=== PATIENT | female | born 1930 | race Caucasian/White ===

== ENCOUNTER 2017-03-03 09:57 | Emergency (ER) | payer MEDICARE, BC ==
--- NOTE | ~2017-03-03 | CR230 ---
[facility] [[email or web address]]. [facility] A Service of [facility] & [facility] RADIOLOGY TEXT RESULTS PATIENT: ANJALI GARCIA LOCATION: SED : [birth year] UNIT #: [id number] AGE: [address]: Brii Lacy APRN SEX: F ORDER DR: [id number] [address] [address] [id number] E MR#: [id number] Acc #: [id number] NAME: ANJALI GARCIA : 1930 SEX: F STUDY DATE/TIME: 03/03/2017 11:09 UNIT: SED ROOM: STUDY DESCRIPTION: CR Shoulder Min 2 View Rt Attending Physician: Brii Lacy A.P.R.N. Ordering Physician: Brii Lacy A.P.R.N. Primary Care Physician: Flako Thomas M.D. MEDICAL IMAGING REPORT This report is preliminary unless electronic signature is present. EXAM Right shoulder, 3 views; 03/03/2017, 1109 hours. CLINICAL HISTORY 86-year-old woman who slipped and fell on a tile floor at home last night. Patient complains of shoulder pain since fall. FINDINGS AP views in internal-external rotation and scapular Y-view demonstrate normal bone density and range of motion. The humerus is intact. The glenohumeral joint is normal. The acromioclavicular joint is normal. Upper ribs are intact. IMPRESSION Negative right shoulder. Dictated by... Mami Winter M.D. THIS IS AN ELECTRONICALLY VERIFIED REPORT Mami Winter M.D. at 03/04/2017 5:21 PM Alejo TD: 03/03/2017 14:32 JOB #: [id number] MEDICAL IMAGING REPORT Page 1 of 1
--- NOTE | ~2017-03-03 | CR169 ---
[facility]. [facility] A Service of [facility] & [facility] RADIOLOGY TEXT RESULTS PATIENT: ANJALI GARCIA LOCATION: SED : [birth year] UNIT #: [id number] AGE: [address]: Brii Lacy APRN SEX: F ORDER DR: [id number] [address] [address] [id number] E MR#: [id number] Acc #: [id number] NAME: ANJALI GARCIA : 1930 SEX: F STUDY DATE/TIME: 03/03/2017 11:06 UNIT: SED ROOM: STUDY DESCRIPTION: CR Knee 2 Views Lt Attending Physician: Brii Lacy A.P.R.N. Ordering Physician: Brii Lacy A.P.R.N. Primary Care Physician: Flako Thomas M.D. MEDICAL IMAGING REPORT This report is preliminary unless electronic signature is present. EXAM Left knee 2 views, 03/03/2017 1106 hours HISTORY 86-year-old woman who fell on a tile floor last night. Patient complains of knee and shoulder pain since fall. COMPARISON None. FINDINGS AP and cross-table lateral views of the knee demonstrate no joint effusion or fracture. There is edema in the subcutaneous tissues anterior to the patella and the infrapatellar tendon. IMPRESSION No joint effusion, fracture or significant degenerative change. There is subcutaneous edema superficial to the patella and the infrapatellar tendon. Dictated by... Mami Winetr M.D. THIS IS AN ELECTRONICALLY VERIFIED REPORT Mami Winter M.D. at 03/03/2017 2:33 PM NASRAM/ellie TD: 03/03/2017 14:10 JOB #: [id number] MEDICAL IMAGING REPORT Page 1 of 1
[~2017-03-03 09:57] MED LIST: ACETAMINOPHEN PO; ADVIL OTC; CALCIUM 500 + D1 TAB PO; CERTAGEN PO; COUMADIN PO; NORCO 5/325 TAB1 TAB PO; PSYLLIUM; [UNRECOGNIZED DRUG - OTHER]; [UNRECOGNIZED DRUG - OTHER]
[2017-03-03] MEDS ORDERED: PRESERVISION1 EA PO (10:09)
[2017-03-03] MEDS ORDERED: HYDROCHLOROTHIA25 MG PO (10:09)
[2017-03-03] MEDS ORDERED: IBUPROFEN (10:10)
[2017-03-03] MEDS ORDERED: VITAMIN D-32000 UNI1 PO (10:10)
== END 2017-03-03 12:18 | disposition home or self-care (01) ==
LOC: SED 09:57
DX: S80.02XA Contusion of left knee, initial encounter (principal); S40.011A Contusion of right shoulder, initial encounter; I10 Essential (primary) hypertension; Z79.899 Other long term (current) drug therapy; W18.30XA Fall on same level, unspecified, initial encounter
CPT/HCPCS: 29530; 73030; 73560; 99283

== ENCOUNTER 2017-03-14 16:55 | Emergency (ER) | payer MEDICARE, BC ==
[~2017-03-14] VITALS: Ht 160 cm; Wt 72.6 kg
--- NOTE | ~2017-03-14 | CR72 ---
[facility]. [facility] A Service of [facility] & [facility] RADIOLOGY TEXT RESULTS PATIENT: ANJALI GARCIA LOCATION: SED : [birth year] UNIT #: [id number] AGE: [address]: Norma Carlton MD SEX: F ORDER DR: [id number] [address] [address] [id number] E MR#: [id number] Acc #: [id number] NAME: ANJALI GARCIA : 1930 SEX: F STUDY DATE/TIME: 03/14/2017 17:32 UNIT: SED ROOM: STUDY DESCRIPTION: CR Chest Single View Portable Attending Physician: Norma Carlton M.D. Ordering Physician: Norma Carlton M.D. Primary Care Physician: Flako Thomas M.D. MEDICAL IMAGING REPORT This report is preliminary unless electronic signature is present. EXAM Portable chest, 03/14/2017 HISTORY Heart palpitations for several weeks. Patient states feels like heart is racing. Benign essential hypertension. FINDINGS There is mild cardiac enlargement. The lungs are clear. There are no pleural effusions. IMPRESSION Mild cardiac enlargement. No active pulmonary disease. Dictated by... Naga Marx M.D. THIS IS AN ELECTRONICALLY VERIFIED REPORT Naga Marx M.D. at 03/15/2017 10:33 AM PROSPER/micki TD: 03/15/2017 05:07 JOB #: [id number] MEDICAL IMAGING REPORT Page 1 of 1
--- NOTE | ~2017-03-14 | EKG ---
PATIENT: RADHA, ANJALI UNIT #: [id number] Ventricular Rate: 141 BPM Atrial Rate: 111 BPM QRS Duration: 70 ms Q-T Interval: 310 ms QTC Calculation(Bezet): 474 ms Calculated R Antonito: -11 degrees Calculated T Antonito: -177 degrees Diagnosis Line: Supraventricular tachycardia Diagnosis Line: Left ventricular hypertrophy with repolarization Diagnosis Line: abnormality Diagnosis Line: Anterior infarct , age undetermined Diagnosis Line: Abnormal ECG Diagnosis Line: No previous ECGs available Diagnosis Line: Confirmed by JEN ORTIZ MD ([id number]) on Diagnosis Line: 03/16/2017 9:47:23 AM INTERPRETING MD: DIANA PRYOR
[~2017-03-14 16:55] MED LIST changes: +HYDROCHLOROTHIA25 MG PO; +IBUPROFEN; +PRESERVISION1 EA PO; +VITAMIN D-32000 UNI1 PO
[2017-03-14 17:37] LABS: BASOPHIL% 0.2 % (0-2.5); EOSINOPHIL# 0.1 X10e3 (0-0.7); EOSINOPHIL% 1.6 % (0.0-7.0); HEMATOCRIT 42.7 % (35.0-45.0); HEMOGLOBIN 14.6 gm/dL (12.0-16.0); LYMPHOCYTE# 1.8 X10e3 (1.0-3.5); LYMPHOCYTE% 27.3 % (17.0-45.0); MEAN CORPUSCULAR HEMOGLOBIN 30.5 PG (28-34); MEAN CORPUSCULAR HGB CONC 34.3 g/dL (30-36); MEAN PLATELET VOLUME 8.9 FL (6.5-11.5); MONOCYTE# 0.6 X10e3 (0-1.0); MONOCYTE% 8.3 % (3.0-12.0); NEUTROPHIL# 4.2 X10e3 (1.5-7.1); NEUTROPHIL% 62.6 % (40-75); PLATELET COUNT 251 X10e3 (140-420); RED CELL DISTRIBUTION WIDTH 12.6 % (11.0-15.5); WHITE BLOOD COUNT 6.7 X10e3 (4.0-10.5)
[2017-03-14 17:38] LABS: POC - MYOGLOBIN 63.1 ng/mL (0.0-169.0); POC - TROPONIN <0.05 ng/mL (<=0.05)
[2017-03-14 17:44] LABS: DIFF IND NO
[2017-03-14 17:48] LABS: INR 0.9; PROTHROMBIN TIME (PATIENT) 10.7 SECONDS (9.5-12.4)
[2017-03-14 17:55] LABS: PARTIAL THROMBOPLASTIN TIME 27.7 SECONDS (25.6-38.1)
[2017-03-14 18:17] LABS: ALBUMIN SERUM 4.2 g/dL (3.5-5.0); BILIRUBIN, DIRECT 0.1 mg/dL (0.0-0.2); BILIRUBIN,INDIRECT 0.5 mg/dL (0.0-0.9); BILIRUBIN,TOTAL 0.6 mg/dL (0.2-2.0); BUN/CREATININE RATIO 25.71; CALCIUM SERUM 9.1 mg/dL (8.4-10.2); CREATININE SERUM 0.7 mg/dL (0.6-1.4); GLOM FILT RATE Estimated 77.9 mL/min (>60); MAGNESIUM 2.1 mg/dL (1.6-3.0); POTASSIUM 3.2 mmol/L (3.5-5.1); PROTEIN TOTAL SERUM 6.5 g/dL (6.0-8.3)
[2017-03-14 19:00] LABS: URINE SOURCE CLEAN CATCH
[2017-03-14 19:02] LABS: URINE APPEARANCE CLEAR; URINE BILIRUBIN NEG (NEG); URINE BLOOD NEG (NEG); URINE COLOR YELLOW; URINE GLUCOSE NEG (NORM); URINE KETONE NEG (NEG); URINE LEUKOCYTE ESTERASE NEG (NEG); URINE NITRATE NEG (NEG); URINE PH 6.5 (5-8); URINE PROTEIN NEG (NEG); URINE SPECIFIC GRAVITY <=1.005 (1.003-1.035); URINE UROBILINOGEN 0.2 MG/DL (NORM)
[2017-03-14 19:04] LABS: MICRO INDICATED? NO
[2017-03-14 19:22] LABS: POC - CKMB <1.0 ng/mL (0.0-7.9)
[2017-03-14 19:23] LABS: POC - MYOGLOBIN 67.6 ng/mL (0.0-169.0); POC - TROPONIN <0.05 ng/mL (<=0.05)
== END 2017-03-14 23:15 ==
LOC: SED 16:55
PROVIDERS: Student in an Organized Health Care Education/Training Program
DX: R00.2 Palpitations (principal); I49.9 Cardiac arrhythmia, unspecified; I10 Essential (primary) hypertension; R55 Syncope and collapse; Z90.710 Acquired absence of both cervix and uterus; Z79.899 Other long term (current) drug therapy
CPT/HCPCS: 71010; 80048; 80076; 81003; 82553; 83735; 83874; 84443; 84484; 85025; 85610; 85730; 93005; 96365; 96366; 96376; 99291